=== PATIENT | male | born 1985 | race Two or more races ===

== ENCOUNTER 2017-01-21 18:21 | Emergency (ER) | payer MEDICAID ==
[~2017-01-21] VITALS: Ht 172.7 cm; Wt 77.1 kg
[~2017-01-21 18:21] MED LIST: ATEN50TA PO; METH10TA7 PO
--- NOTE | 2017-01-21 18:30 | NUR ---
BIB [facility] FOR SEIZURE, BS=97MG/DL [employer]. PATIENT IS A/OX 4, SLIGHTLY LETHARGIC. BREATHING EVEN AND UNLABORED. NO SOB. VITALS STABLE. SAFETY AND COMFORT MEASURES IN PLACE. AWAITING MD ORDERS.
[2017-01-21 19:07] LABS: BASOPHILS % (AUTO) 0.6 % (0.0-2.0); EOSINOPHILS # (AUTO) 0.2 /CMM (0.0-0.7); EOSINOPHILS % (AUTO) 3.5 % (0.0-6.0); HEMATOCRIT 43 % (39-51); HEMOGLOBIN 14.5 g/dL (13.5-17.5); LYMPHOCYTES # (AUTO) 1.5 /CMM (0.8-4.8); LYMPHOCYTES % (AUTO) 23.7 % (20.0-44.0); MEAN CORPUSCULAR HEMOGLOBIN 30 PG (26.0-33.0); MEAN CORPUSCULAR HGB CONC 34 g/dl (31.0-36.0); MEAN CORPUSCULAR VOLUME 88 fL (80-96); MONOCYTES # (AUTO) 0.4 /CMM (0.1-1.30); MONOCYTES % (AUTO) 5.9 % (2.0-12.0); NEUTROPHILS # (AUTO) 4.1 /CMM (1.8-8.9); NEUTROPHILS % (AUTO) 66.3 % (43.0-81.0); PLATELET COUNT (AUTO) 371 /CMM (150-450); RDW COEFFICIENT OF VARIATION 12.6 (11.5-15.0); RED BLOOD CELL COUNT(AUTO) 4.89 MIL/uL (4.5-6.0); WHITE BLOOD COUNT (AUTO) 6.2 K/uL (4.3-11.0)
[2017-01-21 19:16] LABS: CALCIUM, SERUM 8.4 mg/dL (8.5-10.1); POTASSIUM 4.3 mmol/L (3.5-5.1)
[2017-01-21 19:20] LABS: INR 1.06 (0.87-1.13)
--- NOTE | 2017-01-21 19:37 | NUR ---
REPORT GIVEN TO GEOSPATIAL DEVELOPER, ED FOR ИРИНА.
[2017-01-21] MEDS ORDERED: LEVETIRACETAM (250 MG) 250 MG TABLET PO ONE ×2 (19:57→20:00)
--- NOTE | 2017-01-21 20:02 | NUR ---
IV removed. Catheter intact and site benign. Pressure and 4x4 applied to site. No bleeding noted. Patient discharged to home in stable condition. Written and verbal after care instructions given. Patient verbalizes understanding of instruction. ambulatory with a steady gait noted. pt aaox4 no acute distress noted, resp even and unlabored. advice pt not to drive or operate any machinery due to seizure. pt verbalize understanding. pt family members at bedside to take pt home.
[2017-01-21 20:04] VITALS: BP 133/77
== END 2017-01-21 20:05 | disposition home or self-care (01) ==
LOC: ER 18:23
DX: G40.909 Epilepsy, unspecified, not intractable, without status epilepticus (principal); E05.90 Thyrotoxicosis, unspecified without thyrotoxic crisis or storm; G40.409 Other generalized epilepsy and epileptic syndromes, not intractable, without status epilepticus; I10 Essential (primary) hypertension; Z91.19 Patient's noncompliance with other medical treatment and regimen; F17.200 Nicotine dependence, unspecified, uncomplicated
CPT/HCPCS: 36415; 80048; 82542; 84443; 85025; 85730; 93005 ×2; 99285; A4606 ×2; Z7610 ×2

== ENCOUNTER 2017-03-15 06:11 | Emergency (ER) | payer SELFPAY ==
[~2017-03-15] VITALS: Ht 170.2 cm; Wt 94.3 kg
--- NOTE | 2017-03-15 06:19 | NUR ---
PT BIB [facility] WITH A C/O WITHNESSED SEIZURE IN BED. PT'S CALLED 911. PT HAS SLIGHT ORAL TRAUMA NOTED ON TIP OF TONGUE. PT IS PREDOMINANTLY THAI SPEAKING. PT IS ON THE MONITOR AND CONTINUOUS PULSE OX. VSS. PT HAS 20G IV ON LFA DIRECTOR OF PEDIATRIC REHABILITATION. DR. QUINTANA IS AT THE BEDSIDE SPEAKING/EVALUATING THE PT.
--- NOTE | 2017-03-15 06:21 | NUR ---
BLOOD WAS DRAWN AND SENT TO LAB.
[2017-03-15] MEDS ORDERED: IV NS 0.9% 1,000 ML IV ONE (06:30)
[2017-03-15 06:40] LABS: CALCIUM, SERUM 8.4 mg/dL (8.5-10.1); CREATININE 1.1 mg/dL (0.6-1.3); POTASSIUM 3.6 mmol/L (3.5-5.1)
[2017-03-15 06:44] LABS: BASOPHILS % (AUTO) 0.6 % (0.0-2.0); EOSINOPHILS # (AUTO) 0.3 /CMM (0.0-0.7); EOSINOPHILS % (AUTO) 4.4 % (0.0-6.0); HEMATOCRIT 42 % (39-51); HEMOGLOBIN 14.2 g/dL (13.5-17.5); LYMPHOCYTES # (AUTO) 1.8 /CMM (0.8-4.8); LYMPHOCYTES % (AUTO) 25.5 % (20.0-44.0); MEAN CORPUSCULAR HEMOGLOBIN 31 PG (26.0-33.0); MEAN CORPUSCULAR HGB CONC 34 g/dl (31.0-36.0); MEAN CORPUSCULAR VOLUME 90 fL (80-96); MONOCYTES # (AUTO) 0.4 /CMM (0.1-1.30); MONOCYTES % (AUTO) 5.5 % (2.0-12.0); NEUTROPHILS # (AUTO) 4.4 /CMM (1.8-8.9); PLATELET COUNT (AUTO) 257 /CMM (150-450); RDW COEFFICIENT OF VARIATION 15.3 (11.5-15.0); RED BLOOD CELL COUNT(AUTO) 4.64 MIL/uL (4.5-6.0); WHITE BLOOD COUNT (AUTO) 6.9 K/uL (4.3-11.0)
--- NOTE | 2017-03-15 07:11 | NUR ---
IV removed. Catheter intact and site benign. Pressure and 4x4 applied to site. No bleeding noted.Patient discharged to home in stable condition. Written and verbal after care instructions given. Patient verbalizes understanding of instruction. Pt rec'd a copy of the labs. Pt ambulated out with a steady gait. vss.
[2017-03-15 07:12] VITALS: BP 131/51
--- NOTE | 2017-03-15 07:18 | NUR ---
pt called his to pick him up.
== END 2017-03-15 07:18 | disposition home or self-care (01) ==
LOC: ER 06:13
DX: G40.909 Epilepsy, unspecified, not intractable, without status epilepticus (principal); E05.90 Thyrotoxicosis, unspecified without thyrotoxic crisis or storm; I10 Essential (primary) hypertension; F17.200 Nicotine dependence, unspecified, uncomplicated; F15.10 Other stimulant abuse, uncomplicated; F10.10 Alcohol abuse, uncomplicated
CPT/HCPCS: 36415; 80048-TC; 85025-TC; A4606; J7030; Z7610

== ENCOUNTER 2017-09-26 09:46 | Emergency (ER) | payer MEDICAID ==
[~2017-09-26] VITALS: Ht 177.8 cm; Wt 73.0 kg
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
[2017-09-26] MEDS ORDERED: LORAZEPAM INJ 2 MG/ML VIAL ONE (10:00)
[2017-09-26] MEDS ORDERED: LORAZEPAM INJ 2 MG/ML VIAL IVP ONE (10:00)
--- NOTE | 2017-09-26 10:05 | NUR ---
NEW IV STARTED ON LAC, 18G. BLOOD DRAWN AND SENT TO LAB.
[2017-09-26 10:12] LABS: BASOPHILS % (AUTO) 0.5 % (0.0-2.0); EOSINOPHILS % (AUTO) 2.3 % (0.0-6.0); HEMATOCRIT 44 % (39-51); HEMOGLOBIN 14.9 g/dL (13.5-17.5); LYMPHOCYTES # (AUTO) 1.5 /CMM (0.8-4.8); LYMPHOCYTES % (AUTO) 17.2 % (20.0-44.0); MEAN CORPUSCULAR HGB CONC 34 g/dl (31.0-36.0); MEAN CORPUSCULAR VOLUME 89 fL (80-96); MONOCYTES # (AUTO) 0.5 /CMM (0.1-1.30); MONOCYTES % (AUTO) 5.4 % (2.0-12.0); NEUTROPHILS # (AUTO) 6.3 /CMM (1.8-8.9); NEUTROPHILS % (AUTO) 74.6 % (43.0-81.0); PLATELET COUNT (AUTO) 396 /CMM (150-450); RDW COEFFICIENT OF VARIATION 13.6 (11.5-15.0); RED BLOOD CELL COUNT(AUTO) 4.92 MIL/uL (4.5-6.0); WHITE BLOOD COUNT (AUTO) 8.5 K/uL (4.3-11.0)
--- NOTE | 2017-09-26 10:17 | NUR ---
PATIENT TAKEN TO CT VIA STRETCHER.
[2017-09-26 10:22] LABS: CALCIUM, SERUM 8.1 mg/dL (8.5-10.1); CARBON DIOXIDE 25 mmol/L (21-32); CHLORIDE 100 mmol/L (98-107); GLUCOSE 137 mg/dL (74-106); POTASSIUM 3.7 mmol/L (3.5-5.1); SODIUM SERUM 135 mmol/L (136-145); UREA NITROGEN, BLOOD 12 mg/dL (7-18)
[2017-09-26 10:24] LABS: ALCOHOL, BLOOD < 3 mg/dL (0-0)
--- NOTE | 2017-09-26 10:30 | NUR ---
PATIENT RETURNED FROM CT IN STABLE CONDITION.
[2017-09-26] MEDS ORDERED: ACETAMINOPHEN ES 500 MG TABLET ONE (10:57)
[2017-09-26] MEDS ORDERED: ACETAMINOPHEN ES 500 MG TABLET PO ONE (11:00)
[2017-09-26 13:22] VITALS: BP 108/55
--- NOTE | 2017-09-26 13:26 | NUR ---
IV removed. Catheter intact and site benign. Pressure and 4x4 applied to site. No bleeding noted. Patient discharged to home in stable condition. Written and verbal after care instructions given. Patient verbalizes understanding of instruction.
== END 2017-09-26 13:24 | disposition home or self-care (01) ==
LOC: ER 09:50
DX: R56.9 Unspecified convulsions (principal); E05.90 Thyrotoxicosis, unspecified without thyrotoxic crisis or storm; I10 Essential (primary) hypertension; F10.10 Alcohol abuse, uncomplicated; F17.200 Nicotine dependence, unspecified, uncomplicated
CPT/HCPCS: 36415; 70450-TC; 80048-TC; 85025-TC; A4606; G0480; J2060; Z7610

== ENCOUNTER 2018-01-04 01:42 | Emergency (ER) | payer MEDICAID ==
[~2018-01-04] VITALS: Ht 167.6 cm; Wt 68.0 kg
[2018-01-04 01:42] VITALS: BP 166/98
[2018-01-04] MEDS ORDERED: OLANZAPINE 10 MG VIAL IM ONE (02:21)
[2018-01-04] MEDS ORDERED: LORAZEPAM INJ 2 MG/ML VIAL ONE (02:21)
--- NOTE | 2018-01-04 02:40 | NUR ---
PT HAS SIGNED OUT AMA. LANCE SORTO MADE AWARE
[2018-01-04] MEDS: LORAZEPAM INJ 2 MG/ML VIAL IV ONE (02:50)
[2018-01-04] MEDS: OLANZAPINE 10 MG VIAL IM ONE (02:50)
== END 2018-01-04 02:56 | disposition left against medical advice (07) ==
LOC: ER 01:47
DX: F15.10 Other stimulant abuse, uncomplicated (principal); F17.200 Nicotine dependence, unspecified, uncomplicated; R56.9 Unspecified convulsions; I10 Essential (primary) hypertension; F10.10 Alcohol abuse, uncomplicated; E05.90 Thyrotoxicosis, unspecified without thyrotoxic crisis or storm; Y90.9 Presence of alcohol in blood, level not specified; Z71.6 Tobacco abuse counseling
CPT/HCPCS: A4606; J2060; J3490; Z7610

== ENCOUNTER 2019-06-11 05:27 | Emergency (ER) | payer MEDICAID ==
[~2019-06-11] VITALS: Ht 170.2 cm; Wt 89.5 kg
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
--- NOTE | 2019-06-11 06:15 | NUR ---
DR CHAPARRO AT THE BED SIDE
--- NOTE | 2019-06-11 06:53 | NUR ---
Patient discharged to home in stable condition. Written and verbal after care instructions given. Patient verbalizes understanding of instruction.
[2019-06-11 06:54] VITALS: BP 118/80
== END 2019-06-11 06:54 | disposition home or self-care (01) ==
LOC: ER 05:27
DX: G40.909 Epilepsy, unspecified, not intractable, without status epilepticus (principal); I10 Essential (primary) hypertension; F15.10 Other stimulant abuse, uncomplicated; E78.5 Hyperlipidemia, unspecified; F10.10 Alcohol abuse, uncomplicated; F17.200 Nicotine dependence, unspecified, uncomplicated; Y90.9 Presence of alcohol in blood, level not specified; Z79.899 Other long term (current) drug therapy
CPT/HCPCS: 82962-TC

== ENCOUNTER 2020-03-24 09:50 | Emergency (ER) | payer MEDICAID ==
[~2020-03-24] VITALS: Ht 170.2 cm; Wt 84.4 kg
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
--- NOTE | 2020-03-24 09:51 | NUR ---
SEEN AND EXAMINED BY AT BEDSIDE FOR EVAL.
--- NOTE | 2020-03-24 10:00 | NUR ---
BLOOD DRAWN AND SENT TO LAB.
[2020-03-24 10:09] LABS: BASOPHILS # (AUTO) 0.1 /CMM (0.0-0.2); BASOPHILS % (AUTO) 1.3 % (0.0-2.0); EOSINOPHILS % (AUTO) 2.2 % (0.0-6.0); HEMATOCRIT 42 % (39-51); HEMOGLOBIN 14.2 g/dL (13.5-17.5); LYMPHOCYTES # (AUTO) 1.9 /CMM (0.8-4.8); LYMPHOCYTES % (AUTO) 29.8 % (20.0-44.0); MEAN CORPUSCULAR HGB CONC 34 g/dl (31.0-36.0); MEAN CORPUSCULAR VOLUME 90 fL (80-96); MONOCYTES # (AUTO) 0.4 /CMM (0.1-1.30); MONOCYTES % (AUTO) 6.3 % (2.0-12.0); NEUTROPHILS # (AUTO) 3.9 /CMM (1.8-8.9); NEUTROPHILS % (AUTO) 60.4 % (43.0-81.0); PLATELET COUNT (AUTO) 287 /CMM (150-450); RED BLOOD CELL COUNT(AUTO) 4.65 MIL/uL (4.5-6.0); WHITE BLOOD COUNT (AUTO) 6.5 K/uL (4.3-11.0)
[2020-03-24] MEDS ORDERED: LEVO50TA8 PO (10:24)
[2020-03-24] MEDS ORDERED: LEVE500T9 PO (10:24)
[2020-03-24] MEDS ORDERED: LEVETIRACETAM (250 MG) 250 MG TABLET PO ONE ×2 (10:28→10:30)
[2020-03-24 10:36] LABS: CREATININE 1.1 mg/dL (0.6-1.3); POTASSIUM 3.5 mmol/L (3.5-5.1)
[2020-03-24 10:42] LABS: BILIRUBIN,DIRECT 0.1 mg/dL (0.0-0.2); BILIRUBIN,TOTAL 0.4 mg/dL (0.2-1.0); TOTAL PROTEIN, SERUM 7.7 g/dL (6.4-8.2)
[2020-03-24 11:21] VITALS: BP 122/81
== END 2020-03-24 11:22 | disposition home or self-care (01) ==
LOC: ER 09:52
DX: G40.909 Epilepsy, unspecified, not intractable, without status epilepticus (principal); R42 Dizziness and giddiness; I10 Essential (primary) hypertension; E03.9 Hypothyroidism, unspecified; Z79.899 Other long term (current) drug therapy; Z71.6 Tobacco abuse counseling
CPT/HCPCS: 36415; 80048-TC; 80076-TC; 85025-TC

== ENCOUNTER 2020-08-17 19:14 | Emergency (ER) | payer MEDICAID ==
[~2020-08-17] VITALS: Ht 170.2 cm; Wt 84.8 kg
[~2020-08-17 19:14] MED LIST changes: -ATEN50TA PO; +LEVE500T9 PO; +LEVO50TA8 PO; -METH10TA7 PO
--- NOTE | 2020-08-17 19:22 | NUR ---
PATIENT CAME TO THE ER BED 10 C/O SEIZURE EVENT THAT OCCURRED THIS EVENING AT THE [facility] WITH . PATIENT 2 SEIZURES, ONE IN AM, ONE PM. PATIENT STATES THAT HE TOOK HIS MORNING KEPPRA, BUT NOT THIS EVENING WHEN HE HAD A SEIZURE. PATIENT IS AAOX4 UP ARRIVAL TO ER. PATIENT IS BREATHING EVENLY AND UNLABORED ON ROOM AIR AT 99%. NO ORAL TRAUMA. DENIES ANY PAIN. CONNECTED TO THE [employer] MONITOR. SEEN BY KRISTIN ARAUJO
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
--- NOTE | 2020-08-17 19:30 | NUR ---
PT PROVIDED 'S NUMBER , [place]: [phone]
[2020-08-17] MEDS ORDERED: LORAZEPAM 1 MG TABLET ONE (19:40)
[2020-08-17] MEDS ORDERED: LEVETIRACETAM (500MG) 500 MG in IV NS 0.9% 100 ML IV ONE (20:00)
[2020-08-17] MEDS ORDERED: IV NS 0.9% 1,000 ML BAG IV ONE (20:00)
[2020-08-17] MEDS ORDERED: LORAZEPAM 1 MG TABLET PO ONE (20:00)
[2020-08-17] MEDS ORDERED: LEVETIRACETAM (500MG) 500 MG/5 ML VIAL IV ONE (20:17)
--- NOTE | 2020-08-17 20:22 | NUR ---
XRAY AT BEDSIDE
[2020-08-17 20:36] LABS: BASOPHILS # (AUTO) 0.1 /CMM (0.0-0.2); BASOPHILS % (AUTO) 0.6 % (0.0-2.0); EOSINOPHILS % (AUTO) 4.6 % (0.0-6.0); HEMATOCRIT 41 % (39-51); HEMOGLOBIN 13.7 g/dL (13.5-17.5); LYMPHOCYTES # (AUTO) 2.1 /CMM (0.8-4.8); LYMPHOCYTES % (AUTO) 24.7 % (20.0-44.0); MEAN CORPUSCULAR HGB CONC 33 g/dl (31.0-36.0); MEAN CORPUSCULAR VOLUME 93 fL (80-96); MONOCYTES # (AUTO) 0.6 /CMM (0.1-1.30); MONOCYTES % (AUTO) 7.4 % (2.0-12.0); NEUTROPHILS # (AUTO) 5.3 /CMM (1.8-8.9); NEUTROPHILS % (AUTO) 62.7 % (43.0-81.0); PLATELET COUNT (AUTO) 283 /CMM (150-450); RED BLOOD CELL COUNT(AUTO) 4.43 MIL/uL (4.5-6.0); WHITE BLOOD COUNT (AUTO) 8.5 K/uL (4.3-11.0)
[2020-08-17 20:49] LABS: CALCIUM, SERUM 7.9 mg/dL (8.5-10.1)
[2020-08-17 20:52] LABS: ALBUMIN 3.8 g/dL (3.4-5.0); BILIRUBIN,DIRECT 0.1 mg/dL (0.0-0.2); BILIRUBIN,TOTAL 0.3 mg/dL (0.2-1.0); TOTAL PROTEIN, SERUM 7.3 g/dL (6.4-8.2)
[2020-08-17 21:35] LABS: POTASSIUM 3.1 mmol/L (3.5-5.1)
[2020-08-17] MEDS ORDERED: POTASSIUM CHLORIDE 20 MEQ TAB.PRT.SR PO ONE ×2 (22:00→22:07)
[2020-08-17] MEDS ORDERED: POTASSIUM CHLORIDE 10 MEQ TABLET.SA ONE (22:08)
--- NOTE | 2020-08-17 22:17 | NUR ---
IV removed. Catheter intact and site benign. Pressure and 4x4 applied to site. No bleeding noted.
--- NOTE | 2020-08-17 22:17 | NUR ---
Patient discharged to home in stable condition. Written and verbal after care instructions given. Patient verbalizes understanding of instruction.
[2020-08-18 00:35] VITALS: BP 114/69
== END 2020-08-17 22:18 | disposition home or self-care (01) ==
LOC: ER 19:16
DX: G40.909 Epilepsy, unspecified, not intractable, without status epilepticus (principal); F19.10 Other psychoactive substance abuse, uncomplicated; I10 Essential (primary) hypertension; E05.90 Thyrotoxicosis, unspecified without thyrotoxic crisis or storm; F17.200 Nicotine dependence, unspecified, uncomplicated; Z98.890 Other specified postprocedural states; Z79.899 Other long term (current) drug therapy
CPT/HCPCS: 70450; 71045; 80048; 80076; 80177; 80307; 80320; 85025; 93005; 96365; 99285; J1953; J7030 ×3; G0480; J7060

== ENCOUNTER 2021-02-11 09:04 | Emergency (ER) | payer MEDICAID ==
[~2021-02-11] VITALS: Ht 170.2 cm; Wt 86.2 kg
[2021-02-11] MEDS ORDERED: LORAZEPAM INJ 2 MG/ML VIAL ONE (09:08)
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
--- NOTE | 2021-02-11 09:20 | NUR ---
BLOOD SPECIMEN COLLECTED AND SENT TO THE LAB
[2021-02-11 09:21] LABS: BASOPHILS # (AUTO) 0.1 K/uL (0.0-0.2); EOSINOPHILS % (AUTO) 0.6 % (0.0-6.0); HEMATOCRIT 44 % (39-51); HEMOGLOBIN 14.7 g/dL (13.5-17.5); LYMPHOCYTES # (AUTO) 2.9 K/uL (0.8-4.8); LYMPHOCYTES % (AUTO) 26.2 % (20.0-44.0); MEAN CORPUSCULAR HGB CONC 34 g/dl (31.0-36.0); MEAN CORPUSCULAR VOLUME 93 fL (80-96); MONOCYTES % (AUTO) 9.2 % (2.0-12.0); NEUTROPHILS # (AUTO) 6.9 K/uL (1.8-8.9); PLATELET COUNT (AUTO) 340 K/uL (150-450); RED BLOOD CELL COUNT(AUTO) 4.68 MIL/uL (4.5-6.0); WHITE BLOOD COUNT (AUTO) 10.9 K/uL (4.3-11.0)
--- NOTE | 2021-02-11 09:23 | NUR ---
URINE COLLECTED AND SENT TO THE LAB
[2021-02-11] MEDS ORDERED: LORAZEPAM INJ 2 MG/ML VIAL IM ONE (09:30)
[2021-02-11 09:35] LABS: ALANINE AMINOTRANSFERASE 25 U/L (12-78); ALBUMIN 4.4 g/dL (3.4-5.0); ALCOHOL, BLOOD < 3 mg/dL (0-0); ALKALINE PHOSPHATASE 90 U/L (46-116); ASPARTATE AMINOTRANSFERASE 26 U/L (15-37); BILIRUBIN,DIRECT 0.3 mg/dL (0.0-0.2); CALCIUM, SERUM 9.2 mg/dL (8.5-10.1); CARBON DIOXIDE 24 mmol/L (21-32); CHLORIDE 100 mmol/L (98-107); CREATININE 1.2 mg/dL (0.6-1.3); GLUCOSE 153 mg/dL (74-106); POTASSIUM 3.3 mmol/L (3.5-5.1); SODIUM SERUM 138 mmol/L (136-145); TOTAL PROTEIN, SERUM 8.3 g/dL (6.4-8.2); UREA NITROGEN, BLOOD 14 mg/dL (7-18)
[2021-02-11 09:41] LABS: ACETAMINOPHEN < 10 ug/ml (10-30); BILIRUBIN,URINE Negative (NEGATIVE); COLOR,URINE YELLOW (YELLOW); LEUKOCYTE ESTERASE ,URINE Negative (NEGATIVE); NITRITE, URINE Negative (NEGATIVE); PROTEIN,URINE 100 mg/dl (NEGATIVE); UGLUCOSE Negative (NEGATIVE); UROBILINOGEN,URINE 0.2 EU/dL (0.2)
[2021-02-11 09:53] LABS: RBC,URINE 0-2 /HPF (0-2); WBC,URINE NONE SEEN /HPF (0-3)
[2021-02-11 09:54] LABS: BACTERIA,URINE None seen /HPF (None Seen); SQUAMOUS EPITHELIAL CELL,UR None Seen /HPF (None Seen)
[2021-02-11 13:30] LABS: THYROID STIMULATING HORMONE 8.048 uIU/mL (0.358-3.74)
[2021-02-11 14:34] VITALS: BP 125/76
--- NOTE | 2021-02-11 14:34 | NUR ---
IV removed. Catheter intact and site benign. Pressure and 4x4 applied to site. No bleeding noted.Patient discharged to home in stable condition. Written and verbal after care instructions given. Patient verbalizes understanding of instruction.
== END 2021-02-11 14:35 | disposition home or self-care (01) ==
LOC: ER 09:06
DX: R07.89 Other chest pain (principal); F15.10 Other stimulant abuse, uncomplicated; E87.6 Hypokalemia; E03.9 Hypothyroidism, unspecified; R73.9 Hyperglycemia, unspecified; I10 Essential (primary) hypertension; F17.200 Nicotine dependence, unspecified, uncomplicated; Z90.89 Acquired absence of other organs; Z79.899 Other long term (current) drug therapy
CPT/HCPCS: 36415; 71045; 80048; 80076; 80143; 80307; 80320; 81001; 84439; 84443; 84484 ×2; 85025; 93005; 96372; 99285; J2060; G0480

== ENCOUNTER 2021-03-02 04:37 | Emergency (ER) | payer MEDICAID ==
[~2021-03-02] VITALS: Ht 170.2 cm; Wt 69.4 kg
[2021-03-02] MEDS ORDERED: LORAZEPAM INJ 2 MG/ML VIAL ONE (04:47)
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
[2021-03-02] MEDS ORDERED: LORAZEPAM INJ 2 MG/ML VIAL IM ONE (05:00)
[2021-03-02 06:33] VITALS: BP 138/81
--- NOTE | 2021-03-02 06:33 | NUR ---
Patient discharged to home in stable condition. Written and verbal after care instructions given. Patient verbalizes understanding of instruction.
== END 2021-03-02 06:34 | disposition home or self-care (01) ==
LOC: ER 04:39
DX: F15.10 Other stimulant abuse, uncomplicated (principal); I10 Essential (primary) hypertension; E03.9 Hypothyroidism, unspecified; Z98.890 Other specified postprocedural states; Z79.899 Other long term (current) drug therapy
CPT/HCPCS: 96372; 99283; J2060